=== PATIENT | female | born 1960 | race Caucasian/White ===

== ENCOUNTER 2022-01-16 15:24 | Outpatient (CLI) | payer SELFPAY ==
[2022-01-16 17:22] LABS: Albumin* 4.1 g/dL (3.3-5.0); Chloride* 106 mmol/L (96-114)
[2022-01-16 17:23] LABS: Potassium* 3.9 mmol/L (3.6-5.1); Sodium* 137 mmol/L (135-149)
[2022-01-16 17:25] LABS: Alkaline Phosphatase* 100 U/L (40-150); Aspartate Amino Transferase* 39 U/L (12-35); Bilirubin Total* 0.2 mg/dL (0.1-1.5); Carbon Dioxide* 25 mmol/L (20-32); Creatinine* 0.6 mg/dL (0.5-1.5); Estimated Glomerular Filt Rate 101 ml/min; Total Protein* 7.1 g/dL (6.0-8.3)
[2022-01-16 17:26] LABS: Alanine Aminotransferase* 15 U/L (4-35); Blood Urea Nitrogen* 20 mg/dL (7-30); Calcium* 8.7 mg/dL (8.4-10.6); Glucose* 102 mg/dL (60-115)
== END 2022-01-16 15:25 | disposition home or self-care (01) ==
LOC: LONREF 15:25
PROVIDERS: PCP Nurse Practitioner Family; Visit Provider Nurse Practitioner Family
DX: I10 Essential (primary) hypertension (principal)
CPT/HCPCS: 80053

== ENCOUNTER 2024-03-25 09:41 | Outpatient (CLI) | payer MEDICARE, BC, SELFPAY | END 2024-03-25 09:42 | disposition home or self-care (01) | PROVIDERS: PCP Nurse Practitioner Family; Visit Provider Nurse Practitioner Family | DX: I10 Essential (primary) hypertension (principal); E78.5 Hyperlipidemia, unspecified | CPT/HCPCS: 80053; 80061 ==

== ENCOUNTER 2024-06-28 16:26 | Outpatient (CLI) | payer MEDICARE, BC, SELFPAY ==
--- NOTE | 2024-06-28 16:40 | CRLHL7_ITS ---
For Patients: As a result of the Century Cures Act, medical imaging exams and procedure reports are released immediately into your electronic medical record. You may view this report before your referring provider. If you have questions, please contact your health care provider. BILATERAL DIGITAL SCREENING MAMMOGRAM WITH COMPUTER-AIDED DETECTION AND TOMOSYNTHESIS CLINICAL HISTORY: Routine screening exam. COMPARISON: None. TECHNIQUE: Digital mammogram in CC and MLO projections including computer-aided detection (CAD). Tomosynthesis was used in this interpretation. BREAST COMPOSITION: The breasts are heterogeneously dense, which may obscure small masses. FINDINGS: RIGHT Breast: Focal asymmetric density retroareolar plane, 1 cm from the nipple, slightly upper inner quadrant. LEFT Breast: No suspicious findings. IMPRESSION: RIGHT breast asymmetry/mass. RECOMMENDATIONS: Additional mammographic views of the RIGHT breast including 3D spot compression CC/MLO. RIGHT breast ultrasound may also be required. The [facility] will contact the patient. A lay language report of this examination will be provided to the patient. BI-RADS Category 0: Incomplete: Need Additional Imaging Evaluation Dictated by Andrés Marley MD @ 06/29/2024 10:11:07 AM jj/Dictated by: Andrés Marley MD @ 06/29/2024 10:14:00 AM (Electronically Signed)
== END 2024-06-28 16:27 | disposition home or self-care (01) ==
LOC: MAMMO 16:27
PROVIDERS: PCP Nurse Practitioner Family; Visit Provider Nurse Practitioner Family
DX: Z12.31 Encounter for screening mammogram for malignant neoplasm of breast (principal); N63.10 Unspecified lump in the right breast, unspecified quadrant; R92.333 Mammographic heterogeneous density, bilateral breasts
CPT/HCPCS: 77063; 77067

== ENCOUNTER 2024-07-04 09:22 | Outpatient (CLI) | payer MEDICARE, BC, SELFPAY ==
--- NOTE | 2024-07-04 09:45 | CRLHL7_ITS ---
For Patients: As a result of the Cures Act, medical imaging exams and procedure reports are released immediately into your electronic medical record. You may view this report before your referring provider. If you have questions, please contact your health care provider. DIGITAL DIAGNOSTIC RIGHT MAMMOGRAM USING TOMOSYNTHESIS AND COMPUTER-AIDED DETECTION RIGHT BREAST ULTRASOUND CLINICAL HISTORY: RIGHT breast mass/asymmetry. COMPARISON: 06/28/2024. TECHNIQUE: Digital RIGHT mammogram in two projections. Tomosynthesis was used in this interpretation. Real-time ultrasound imaging of RIGHT breast with imaging documentation. BREAST COMPOSITION: The breasts are heterogeneously dense, which may obscure small masses. FINDINGS: 3D spot compression CC/MLO RIGHT breast mammogram images submitted. Decreased conspicuity of previously noted asymmetric density in the retroareolar plane. Stable nodular density within the inferomedial RIGHT breast. In retrospect, this density was also present on remote CT dated 10/22/2015. Targeted ultrasound RIGHT breast performed. In the retroareolar plane, there is an incidental dystrophic calcification. No single duct ectasia or intraductal nodule. Targeted ultrasound to the medial RIGHT breast also performed at 3 o`clock 3 cm from the nipple. In this location, there is a circumscribed hypoechoic solid nodule which measures 8 x 3 x 9 millimeters. No internal vascularity. IMPRESSION: No suspicious findings within the retroareolar RIGHT breast. Incidental fibroadenoma RIGHT breast 3 o`clock 3 cm from the nipple measuring 9 millimeters. No suspicious findings. RECOMMENDATIONS: Routine screening mammography. A lay language report of this examination will be provided to the patient. BI-RADS Category 2: Benign Dictated by Andrés Marley MD @ 07/04/2024 10:14:56 AM jj/Dictated by: Andrés Marley MD @ 07/04/2024 10:14:00 AM (Electronically Signed)
== END 2024-07-04 09:23 | disposition home or self-care (01) ==
LOC: MAMMO 09:24
PROVIDERS: PCP Nurse Practitioner Family; Visit Provider Nurse Practitioner Family
DX: N63.10 Unspecified lump in the right breast, unspecified quadrant (principal); R92.8 Other abnormal and inconclusive findings on diagnostic imaging of breast
CPT/HCPCS: 76642; 77065; G0279

== ENCOUNTER 2024-08-26 01:14 | Emergency (ER) | payer MEDICARE, BC, SELFPAY ==
[2024-08-26] VITALS (8 sets, daily range): BP systolic 125–147; BP diastolic 68–80; PULSE 77–84; RESP 11–23; TEMP 36.3; O2SAT 90–96; BMI 29.6
--- OUTSIDE RECORDS SUMMARY | 2024-08-26 01:17 | XMS_ITS | Clinical Summary ---
Author Organization [facility] Address [address] [place] [id number] Care Team Providers Care Health And Safety Coordinator Name Role Phone Pcp, No Primary Care Provider Unavailabl e Allergies No known active allergies Medications mv,Ca,min-FA-he rbal comp #223 (ESTROVEN MOOD AND MEMORY) 400 mcg tab Take by mouth. 0 01/01/2017 Active fluticasone (50 mcg per actuation) nasal solution (FLONASE)Indica tions:Bronchiti s Inhale 1 [place] into both nostrils once daily. 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 Gender Identity Not on file Sexual Orientation Not on file Obstetrics History Last Filed Vital Signs Vital Sign Reading Time Taken Comments Blood Pressure 160/94 01/21/2017 3:56 PM CDT Pulse 79 01/21/2017 3:56 PM CDT Temperature 36.8 C (98.3 F) 01/01/2017 2:52 PM CDT Respiratory Rate 16 01/01/2017 2:52 PM CDT Oxygen Saturation 96% 01/01/2017 2:52 PM CDT Inhaled Oxygen Concentration - - Weight 81.5 kg (179 lb 10.8 oz) 01/21/2017 3:56 PM CDT Height 163.5 cm (5' 4.37) 01/01/2017 2:52 PM CD T Body Mass Index 30.49 01/01/2017 2:52 PM CDT Plan of Treatment Health Maintenance Due Date Last Done Comments Tdap 1970 HIV for age 15-65 1974 Hepatitis C screening for age 18-79 1977 Tetanus booster 1979 Pap test for age 21-65 02/23/1980 Colonoscopy through age 75 02/23/2004 Lipids for age 45-75 02/23/2004 Mammogram for age 45-75 02/23/2004 Pneumococcal series for age 50+ (1 of 1 - PCV) 009 Zoster (shingles) series for age 50+ (1 of 2) 02/23/20 09 BMI (ht and wt on same day) for age 18+ 01/01/2018 0 01/01/2017 Depression screening for age 12+ 01/01/2018 01/02/20 17 COVID-19 vaccine series ( - 2023- season) DEXA/DXA scan for age 65+ 02/23/2024 Influenza Vaccine (Season Ended) 2024 RSV vaccine for adults or pr egnancy (1 - 1-dose 75+ series) 2034 Care Teams Health And Safety Coordinator Relationship Specialty Start Date End Date Pcp, No . PCP - General 11/01/12
[2024-08-26 01:34] LABS: Hematocrit 47.3 % (33.0-51.0); Hemoglobin* 15.3 gm/dL (12.0-16.0); Lymphocytes Percent Auto 48.6 % (20-44); Mean Corpuscular HGB Conc 32 gm/dL (32-36); Mean Corpuscular Hemoglobin 30 pg (26-34); Mean Corpuscular Volume 92 fL (80-100); Monocytes Percent Auto 6.9 % (0.0-11.0); Neutrophils Percent Auto 40.8 % (42.0-72.0); Platelet Count* 281 K/uL (140-440); RDW Coefficient of Variation % 13.8 % (11.5-15.5); Red Blood Count 5.13 m/uL (4.00-5.20); White Blood Count* 6.71 K/uL (4.50-11.00)
[2024-08-26 01:35] LABS: Basophils Absolute Auto 0.03 K/uL (0.00-0.30); Basophils Percent Auto 0.4 % (0.0-3.0); Eosinophils Absolute Auto 0.18 K/uL (0.00-0.50); Eosinophils Percent Auto 2.7 % (0.0-7.0); Immature Granulocytes Abs Auto 0.04 K/uL (0.00-0.30); Immature Granulocytes Pct Auto 0.6 %
[2024-08-26 01:38] LABS: Slide Review Reflex No
[2024-08-26 01:46] LABS: Chloride* 106 mmol/L (96-114); Sodium* 139 mmol/L (135-149)
[2024-08-26 01:47] LABS: Potassium* 3.6 mmol/L (3.6-5.1)
[2024-08-26 01:50] LABS: Anion Gap 6 mEq/L (7-15); Blood Urea Nitrogen* 24 mg/dL (7-30); Calcium* 9.4 mg/dL (8.4-10.6); Carbon Dioxide* 27 mmol/L (20-32); Creatinine* 0.7 mg/dL (0.5-1.5); Est. Creatinine Clearance* 48.43; Estimated Glomerular Filt Rate 96 ml/min; Glucose* 132 mg/dL (60-115)
--- NOTE | 2024-08-26 01:50 | ED.ARRPALP ---
HPI - Arrhythmia/Palpitations General Chief Complaint: Arrhythmia/Palpitations Stated Complaint: racing heart Time Seen by Provider: 08/26/24 01:25 Source: patient Mode of arrival: ambulatory Limitations: no limitations History of Present Illness HPI narrative: Patient is a 64-year-old female with no cardiac history other than hypertension who awoke from sleep this evening with a sense that her heart was racing. It felt like it was going fast but regular. There is no associated chest pains or shortness of breath. This is never happened to her previously. With physical activity she is not get any chest pain. Her risk factors for coronary artery disease are the fact that she is a smoker and has hypertension. She denies hyperlipidemia, diabetes, family history. Her heart continued to race but returned to normal during her ride to the hospital. Her medications are losartan and hydrochlorothiazide for hypertension. She has been told since she was a child she has a heart murmur but this is never been evaluated. She has never had a stress test or worn a surveillance system monitor. She has felt well recently. No fevers or chills. No GI symptoms. Related Data Previous Rx's ?Medication ?Instructions ?Recorded hydrochlorothiazide 12.5 mg tablet 12.5 mg PO QAM #90 tabs 03/25/24 losartan 50 mg tablet 50 mg PO QDAY #90 tabs 03/25/24 Allergies Allergy/AdvReac Type Severity Reaction Status Date / Time No Known Drug Allergies Allergy Verified 03/25/24 08:59 Review of Systems Narrative: Review of systems is outlined above otherwise noted to be negative. She acknowledges that she never saw a doctor until she got on Medicare last fall. Her PCP is Karely Fajardo. [facility] Surgical History (Updated 02/05/23 @ 15:35 by Karely Fajardo [facility]) History of cataract surgery ?Z98.49 - Cataract extraction status, unspecified eye (ICD-10) Status post laparoscopic appendectomy ?Z90.49 - Acquired absence of other specified parts of digestive tract (ICD-10) Social History (Updated 08/26/24 @ 01:49 by Andrés Nuno MD) Narrative: , 1/2 ppd smoker Smoking Status: Never smoker Exam Narrative: Exam Narrative: Vitals noted. HEENT: Conjunctiva clear. Neck is supple without adenopathy, thyromegaly, carotid bruit. Lungs: Clear to auscultation in all stone. No wheezes, rales, rhonchi. Heart: Regular rate and rhythm with a grade 2/6 systolic murmur. No chest wall tenderness. Abdomen: Soft and nontender. No guarding, rigidity, rebound. Bowel sounds are normal. No palpable masses. Extremities: No cyanosis or edema. Good distal pulses. Skin: No abnormalities noted of the exposed skin. Neurologic: Awake, alert, fully oriented. Neurologic exam is nonfocal. Const: Vital Signs, click to edit/add: Vital Signs - 24 hr 08/26/24 01:19 08/26/24 01:30 Temperature 97.3 F L Pulse Rate [Right Pulse Oximeter] 84 Respiratory Rate 18 Blood Pressure [Le ft Upper Arm] 147/77 H Pulse Oximetry 96 92 Oxygen Delivery Me thod Room Air Course Course ED Course: Patient is seen and examined. EKG shows normal sinus rhythm with a rate of 85. No acute ST or T-wave changes. Point of care troponin is 0. CBC, BMP, TSH are drawn. Her heart rate is in the 80s. Oxygen saturation is 95%. She is asymptomatic. Reevaluation(s) Reevaluation #1: CBC, BMP, TSH are all normal. Second troponin is negative. She remained asymptomatic. Vital Signs Vital signs: Initial Vital Signs Temperature 97.3 F L 08/26/24 01:19 Temperature Source Temporal Artery Scan 08/26/24 01:19 Pulse Rate 84 08/26/24 01:19 Pulse Rhythm Regular 08/26/24 01:19 Respiratory Rate 18 08/26/24 01:19 Blood Pressure 147/77 H 08/26/24 01:19 Blood Pressure Mean 100 08/26/24 01:19 Blood Pressure Position Sitting 08/26/24 01:19 Pulse Oximetry 96 08/26/24 01:19 Oxygen Delivery Method Room Air 08/26/24 01:19 Vital Signs Temperature 97.3 F L 08/26/24 01:19 Pulse Rate 84 08/26/24 01:19 Respiratory Rate 18 08/26/24 01:19 Blood Pressure 147/77 H 08/26/24 01:19 Pulse Oximetry 96 08/26/24 01:19 Oxygen Delivery Method Room Air 08/26/24 01:19 Temperature 97.3 F L 08/26/24 01:19 Pulse Rate 84 08/26/24 01:19 Respiratory Rate 18 08/26/24 01:19 Blood Pressure 147/77 H 08/26/24 01:19 Pulse Oximetry 92 08/26/24 01:30 Oxygen Delivery Method Room Air 08/26/24 01:19 MDM - Arrhythmia/Palpitations Lab Data Labs: Lab Results 08/26/24 08/26/24 Range/Units 01:25 01:27 WBC 6.71 (4.50-11.00) K/uL RBC 5.13 (4.00-5.20) m/uL Hgb 15.3 (12.0-16.0) gm/dL Hct 47.3 (33.0-51.0) % MCV 92 (80-100) fL MCH 30 (26-34) pg MCHC 32 (32-36) gm/dL RDW Coeff of [place] 13.8 (11.5-15.5) % Plt Count 281 (140-440) K/uL Neut % (Auto) 40.8 L (42.0-72.0) % Lymph % (Auto) 48.6 H (20-44) % Alexander % (Auto) 6.9 (0.0-11.0) % Eos % (Auto) 2.7 (0.0-7.0) % Baso % (Auto) 0.4 (0.0-3.0) % Neut # (Auto) 2.70 (1.7-7.0) K/uL Lymph # (Auto) 3.30 H (0.90-2.90) K/uL Alexander # (Auto) 0.50 (0.00-0.90) K/UL Eos # (Auto) 0.18 (0.00-0.50) K/uL Baso # (Auto) 0.03 (0.00-0.30) K/uL Abs Immat Gran (auto) 0.04 (0.00-0.30) K/uL Imm/Tot Granulo (auto) 0.6 % Sodium 139 (135-149) mmol/L Potassium 3.6 (3.6-5.1) mmol/L Chloride 106 (96-114) mmol/L Carbon Dioxide 27 (20-32) mmol/L Anion Gap 6 L (7-15) mEq/L BUN 24 (7-30) mg/dL Creatinine 0.7 (0.5-1.5) mg/dL Estimated Creat Clear 48.43 Estimated GFR 96 ml/min Glucose 132 H (60-115) mg/dL Calcium 9.4 (8.4-10.6) mg/dL TSH 1.840 (0.270-4.200) uIU/mL POC Troponin I 0.00 L (0.01-0.04) ng/ml Discharge Plan Discharge Clinical Impression: Tachycardia Patient Disposition: Home, Self-Care Condition: Improved Additional Instructions: Continue your current medication. Follow-up with Karely Fajardo to discuss a stress echo +/- Zio patch for further evaluation. Return to the emergency department for recurrent tachycardia/palpitations/chest pain. Prescriptions: No Action hydrochlorothiazide 12.5 mg tablet 12.5 mg PO QAM Qty: 90 3RF losartan 50 mg tablet 50 mg PO QDAY Qty: 90 3RF Follow Up/Referrals: Karely Fajardo EMERGENCY MEDICINE PHYSICIAN ASSISTANT [Primary Care Provider] - Stand Alone Forms: [employer] Info Instructions
--- OUTSIDE RECORDS SUMMARY | 2024-08-26 01:59 | XMS_ITS | Clinical Summary ---
Author Organization [facility] Address [address] [place] [id number] Care Team Providers Care Heat Plant Specialist Name Role Phone Pcp, No Primary Care Provider Unavailabl e Allergies No known active allergies Medications mv,Ca,min-FA-he rbal comp #223 (ESTROVEN MOOD AND MEMORY) 400 mcg tab Take by mouth. 0 01/01/2017 Active fluticasone (50 mcg per actuation) nasal solution (FLONASE)Indica tions:Bronchiti s Inhale 1 [place] into both nostrils once daily. 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 PCP - General 11/01/12
[2024-08-26 03:35] LABS: Troponin, Point-of-Care* 0.01 ng/ml (0.01-0.04)
== END 2024-08-26 03:47 | disposition home or self-care (01) ==
PROVIDERS: Emergency Provider Family Medicine; PCP Nurse Practitioner Family
DX: R00.0 Tachycardia, unspecified (principal)
CPT/HCPCS: 36415; 80048; 84443; 84484; 85025; 93005; 94761; 99282; 99284

== ENCOUNTER 2025-03-29 08:50 | Outpatient (CLI) | payer MEDICARE, BC, SELFPAY | END 2025-03-29 08:51 | disposition home or self-care (01) | LOC: LKVREF 08:53 | PROVIDERS: PCP Nurse Practitioner Family; Visit Provider Nurse Practitioner Family | DX: E78.5 Hyperlipidemia, unspecified (principal) | CPT/HCPCS: 80061 ==